=== PATIENT | male | born 1985 | race Caucasian/White ===

== ENCOUNTER 2018-09-11 09:09 | Emergency (ER) | payer SELFPAY ==
[2018-09-11 09:15] VITALS: BP 154/84; PULSE 96; RESP 16; TEMP 36.8; O2SAT 95
--- NOTE | 2018-09-11 11:44 | NUR.NOTE ---
Pt. not currently in waiting room, will continue to monitor.
--- NOTE | 2018-09-11 11:55 | NUR.NOTE ---
Pt. left prior to complete eval.
== END 2018-09-11 11:44 ==
LOC: ER 12:38
PROVIDERS: Emergency Provider Physician Assistant
DX: Z53.21 Procedure and treatment not carried out due to patient leaving prior to being seen by health care provider (principal)